=== PATIENT | male | born 1940 | race Caucasian/White ===

== ENCOUNTER 2017-03-29 00:30 | Inpatient (IN) | payer OTHER ==
[2017-03-29] MEDS ORDERED: LIDOCAINE 2% JELLY 20 ML (UROJECT) ONE (00:59)
[2017-03-29] MEDS ORDERED: LIDOCAINE 2% JELLY 20 ML (UROJECT) UR ONE (01:05)
--- NOTE | 2017-03-29 04:12 | EDPHY ---
H & P Stated Complaint: bleeding from prostate/dysuria Time Seen by Provider: 03/29/17 00:45 HPI/ROS: Chief Complaint: Hematuria HPI: 76-year-old male with a history of benign prostate disease presenting with hematuria and inability to urinate. Patient has had similar episodes in the past, most recently 2 years ago. At that time he had an irrigation catheter placed and followed up with Urology. He is currently under the care of Dr. Arango, urology. There has been some discussion about a prostatectomy which the patient has been deferring. He had tried to self cath at home but only produced blood clots. No fevers or chills. No nausea or vomiting. Some abdominal pain associated with his inability to urinate. ROS: 10 point Review of Systems is negative except as noted in the HPI. PMH: BPH Social History: No smoking, no alcohol, no recreational drug use Family History: non-contributory Physical Exam: Gen: Awake, Alert, No Distress HEENT: Nose: no rhinorrhea Eyes: PERRLA, EOMI Mouth: Moist mucosa Neck: Supple, no JVD Chest: nontender, lungs clear to auscultation Heart: S1, S2 normal, no murmur Abd: Soft, distended bladder palpable, moderate tenderness Back: no CVA tenderness, no midline tenderness Ext: no edema, non-tender Skin: no rash Neuro: CN II-XII intact, Sensation grossly intact, Strength 5/5 in bilateral upper and lower extremities - Personal History Current Tetanus/Diphtheria Vaccine: Yes - Medical/Surgical History Hx Asthma: No Hx Chronic Respiratory Disease: No Hx Diabetes: No Hx Cardiac Disease: No Hx Renal Disease: No Hx Cirrhosis: No Hx Alcoholism: No Hx HIV/AIDS: No Hx Splenectomy or Spleen Trauma: No Other PMH: PMHx/PSHx: BPH s/p Green laser surgery, bladder stones - Social History Smoking Status: Never smoked Constitutional: Initial Vital Signs Temperature (C) 37 C 03/29/17 00:33 Heart Rate 115 H 03/29/17 00:33 Respiratory Rate 24 H 03/29/17 00:33 Blood Pressure 106/67 03/29/17 00:33 O2 Sat (%) 96 03/29/17 00:33 O2 Delivery Mode Room Air Allergies/Adverse Reactions: No Known Allergies Allergy (Verified 03/11/15 12:31) Home Medications: Medication Instructions Recorded NK [No Known Home Meds] 03/29/17 Medical Decision Making ED Course/Re-evaluation: 76-year-old male with urinary retention and hematuria. It UA catheter is been placed with production of a large amount of clots and gross hematuria. He was irrigated with several L of fluid. Is continuing to produce clots at 1 point became obstructed once again requiring clot evacuation. I have discussed with Dr. Casanova, urology. He is requesting that the patient be admitted to the hospitalist service for continued bladder irrigation as he is likely to reobstruct and rebleed. Patient has not had any symptoms of infection. Will send a CBC and chemistry now to compared to baseline. I have discussed with Dr. sammie finley, hospitalist. She will admit to her service for further care. She is requesting the patient go to [address] [place] [address] for continuous bladder irrigation. - Data Points Medications Given: Discontinued Medications Lidocaine (Uroject Lidocaine 2% Jelly) 20 ml UR EDNOW ONE Stop: 03/29/17 01:06 Last Admin: 03/29/17 01:05 Dose: 20 ml Departure - Departure Disposition: [facility] Inpatient Acute Clinical Impression: Hematuria, Urinary retention Condition: Fair Referrals: NONE *PRIMARY CARE P,. [Primary Care Provider] - As per Instructions
[2017-03-29] MEDS ORDERED: ONDANSETRON 4 MG/2 ML VIAL IVP PRN (04:13)
[2017-03-29] MEDS ORDERED: ACETAMINOPHEN 325 MG TAB PO PRN (04:13)
[2017-03-29] MEDS ORDERED: ONDANSETRON DISINTEGRATING 4 MG TAB PO PRN (04:13)
[2017-03-29 05:05] LABS: ANION GAP 8 mEq/L (8-16); CARBON DIOXIDE 20 mEq/l (22-31); CHLORIDE 106 mEq/L (97-110); CREATININE 0.7 mg/dL (0.7-1.3); GLOMERULAR FILTRATION RATE > 60; GLUCOSE 141 mg/dL (70-100); POTASSIUM 4.4 mEq/L (3.5-5.2); SODIUM 134 mEq/L (134-144)
[2017-03-29 05:13] LABS: % IMMATURE GRANULYOCYTES 0.4 % (0.0-1.1); ABSOLUTE IMMATURE GRANULOCYTES 0.04 10^3/uL (0.00-0.10); ADD DIFF? NO; ADD MORPH? NO; ADD SCAN? NO; ATYPICAL LYMPHOCYTE FLAG 0 (0-99); FRAGMENT RBC FLAG 20 (0-99); HEMATOCRIT 28.8 % (40.0-51.0); LEFT SHIFT FLG 10 (0-99); LIPEMIA HEMOLYSIS FLAG 80 (0-99); MEAN CELL HEMOGLOBIN 25.4 pg (27.9-34.1); MEAN CELL HEMOGLOBIN CONCENTR. 31.3 g/dL (32.4-36.7); MEAN CELL VOLUME 81.1 fL (81.5-99.8); MEAN PLATELET VOLUME 12.8 fL (8.7-11.7); PLATELET CLUMPS FLAG 0 (0-99); PLATELET COUNT 166 10^3/uL (150-400); RED BLOOD CELL COUNT 3.55 10^6/uL (4.40-6.38); RED CELL DISTRIBUTION WIDTH 15.6 % (11.5-15.2)
--- NOTE | 2017-03-29 05:22 | GHP ---
[f rep st] HISTORY AND PHYSICAL DATE OF ADMISSION: 03/29/2017 CHIEF COMPLAINT: Abdominal discomfort and hematuria. HISTORY OF PRESENT ILLNESS: A 76-year-old male with limited past medical history to known BPH and previous episode of gross hematuria requiring irrigation. The patient was last seen in the emergency department in 2014 with similar complaints as he has been symptom free since that time without any surgical intervention on his prostate. The patient late this evening developed significant clot burden in his urination, believed he was passing the clots successfully, and then had complete inability to pass clots and/or urine. Developed abdominal distention and associated abdominal pain. Therefore, presented to the emergency department. He denies any significant preceding dysuria. Denies any subjective fevers or chills. Denies nausea or vomiting. Does report that as he was passing painful urine with clots, he would concomitantly need to pass stool. Otherwise denied diarrhea or changes in his bowel habits. Denies any chest pain, palpitations, shortness of breath, vision changes, dysphagia, myalgias, arthralgias, or any new rashes. The patient is currently much more comfortable since catheter has been placed and irrigation has been initiated. PAST MEDICAL HISTORY: 1. BPH. 2. History of gross hematuria. 3. History of prostatitis. 4. History of bladder calculus. SOCIAL HISTORY: Negative for tobacco, alcohol, or illicit drugs. FAMILY HISTORY: Negative for any BPH or prostatic cancers. Sisters from ALS. Brother from lung cancer. ADVANCED DIRECTIVES: Patient is full cor, full tube. His would be his medical decision maker. REVIEW OF SYSTEMS: A 10-point review of systems is negative with the exception of that reported in the HPI. PHYSICAL EXAMINATION: VITAL SIGNS: Blood pressure 106/67, heart rate 115 at presentation, respiratory rate 24, 96% on room air, 37.0. GENERAL: This is a pleasant healthy-appearing elderly male in no acute distress. HEENT: Notable for moist mucous membranes. Eye exam is negative for any icterus. CARDIAC: Patient is regular rate and rhythm. PULMONARY: Clear to auscultation bilaterally. GASTROINTESTINAL: The abdomen is mildly distended and mildly tender to palpation throughout. No rebound or guarding is appreciated. UROLOGIC: A Sanchez catheter for irrigation is in place. Urine is clearing. MUSCULOSKELETAL: Negative for any lower extremity edema. SKIN: Negative for any rashes. NEUROLOGIC: He is alert and oriented x3. PSYCHIATRIC: He is pleasant and cooperative on interview and examination. DATA: Laboratory review, creatinine last check is 0.8 in 2014. At that time, the patient had normocytic anemia with a hemoglobin of 11.8. Telemetry, which I personally reviewed and interpreted, showed sinus rhythm. ASSESSMENT AND PLAN: This is a 76-year-old male, presenting with gross hematuria and abdominal discomfort. 1. Gross hematuria. Suspect this is recurrent episode related to the patient' s benign prostatic hyperplasia and previous history. The 3-way catheter is in place and irrigation has been initiated. Urology has been consulted from the emergency department. Will continue irrigation. Would recommend that we send urinalysis, as well as basic labs including CBC, and BMP to evaluate the patient 's renal function, as well as white count. Will not start any empiric antibiotics at this time, and follow the patient's clinical course on bladder irrigation. Will treat with pain medications as needed for abdominal discomfort. 2. Benign prostatic hyperplasia. Well known to this patient with chronically elevated PSA. Patient is followed chronically by Dr. Arango. Can reinitiate discussions on long-term treatment of his benign prostatic hyperplasia after acute treatment of his gross hematuria. 3. Acute urinary obstruction 2/2 BPH - Sanchez placed in ED - Urology to consult for recs related to acute presentation 4. History of normocytic anemia. Will recheck the patient's CBC this morning. 5. Prophylaxis. Will hold on Lovenox secondary to the hematuria. Place sequential compression devices. Diet regular. DISPOSITION: I expect greater than 2 midnights as the patient is requiring bladder irrigation. Will need consultation with Urology and clearer therapeutic plan in place prior to disposition. I have discussed the case with the emergency room physician and triage. The patient to [address] [place] [address] for continuous bladder irrigation and urologic consultation. /[id number]/MODL MTDD
--- NOTE | 2017-03-29 12:40 | HOSPPROG ---
Hospitalist Progress Note Assessment/Plan: Patient is a 76-year-old male with history of BPH and history of gross hematuria require irrigation. Prior to his admission he developed significant clots while trying to urinate. He presented the emergency room with abdominal discomfort and hematuria. He was admitted earlier this morning by Dr Land. I came by to check in and follow up with him. * gross hematuria On continuous bladder irrigation per RN, when fluid is slowed down, patient develops clots spoke w Eliane Eubanks and Dr Arango will be by today * BPH with a chronically elevated PSA To follow up with Dr. Arango in the outpatient setting * normocytic anemia will follow * urinary obstruction secondary to BPH *Plan: will await input from urology Subjective: Todd has no complaints. Objective: Vital Signs Temp Pulse Resp BP Pulse Ox 36.8 C 67 16 126/80 H 98 03/29/17 11:42 03/29/17 11:42 03/29/17 11:42 03/29/17 11:42 03/29/17 11:42 Laboratory Results 03/29/17 04:40 03/29/17 04:40 03/28/17 03/29/17 03/30/17 05:59 05:59 05:59 Intake Total 43399 Output Total 45952 150 Balance -3450 -150 - Physical Exam Constitutional: no apparent distress, appears nourished, not in pain Eyes: PERRL Ears, Nose, Mouth, Throat: hearing normal Respiratory: no respiratory distress Genitourinary: cheatham in urethra (draining tea colored urine) Neurologic: AAOx3 Psychiatric: interacting appropriately, not anxious ICD10 Worksheet Patient Problems: Problems Problem Status Onset Hematuria Acute Urinary retention Acute
--- NOTE | 2017-03-29 15:04 | GCON ---
[f rep st] CONSULTATION HOSPITAL VISIT Urology has been asked to see the patient by the emergency room, Ranjan Richmond, and also the hospital ist, Juana Land, and also Carla Horton. By history, this is a gentleman who has had gross hematuria, and he says he has been bleeding for the past 4 or 5 days. He eventually developed urinary clot retention, unable to void and was seen in [facility] emergency room. It is noted this is a 76-year-old gentleman who has had a long-standing history of BPH and bladder stones, stones which were removed in the past. It was recommended he should have BP H treatment, and he has declined. At the present time, he was admitted because of gross clot urinary retention. He has had a catheter placed for irrigation of the bladder. PAST MEDICAL HISTORY: Significant for BPH, gross hematuria, history of prostatitis and bladder stone s. SOCIAL HISTORY: Nonsmoker, nondrinker. No illicit drugs. FAMILY HISTORY: Negative for prostate disorder. Sister from ALS. Brother from lung cance r. REVIEW OF SYSTEMS: Negative cardiac, respiratory, GI, endocrine, and musculoskeletal. PHYSICAL EXAM: VITAL SIGNS: Stable. GENERAL: He is alert and oriented x3. CHEST: Has normal res pirations. HEART: Regular rate and rhythm. ABDOMEN: Soft. : He does have a catheter in place, with irrigation going. LOWER EXTREMITIES: Normal, with no suggestion of peripheral edema, swelling , DVT, or clots. At the present time, he is being admitted for irrigation of the bladder. I did request an ultrasound of the kidneys that showed no hydronephrosis or masses. I had also asked for a pelvic ultrasound [facility] for some reason has been canceled, and so a complete ultrasound was not performed. The radiologis t interpreted the ultrasound of the bladder area as having BPH and the catheter. When I review it, i t appears he has some clot, approximately 30 mL of clot in the bladder on the ultrasound in the [facility]. I have irrigated his catheter, and it revealed no clots. Urine is relatively clear. The nurse says that if they slow the catheter irrigation down, that he gets more bloody and has bladder spasms. At the present time, plan is to continue a CBI, hopefully remove his catheter tomorrow morning, and if he voids spontaneously and goes home, and after recovery from his anemia related to this event, angeles angulogo a TUR of the prostate. We would further evaluate him since it has been a while since he has cody juan evaluated. If he cannot void or has residual clots, then he may need to undergo general anesthes ia for evacuation of clots, but once again, I irrigated his bladder. It appears that he had no large clots, and adequate ultrasound of the bladder/pelvis was canceled unknowingly to me. His hematocrit is noted to be 28%. We will check it in the morning, and B and O suppositories will be added to his medication list. We will follow up with him tomorrow. /[id number]/MODL
--- NOTE | 2017-03-29 17:04 | ASMTCMCOM ---
CM Note CM Note Notes: Patient seen by Dr. lewis of urology..He will wait to see if patient continues to have needs or whether he will be abl eto discharge home independent. Case management will ofllow. Date Signed: 03/29/2017 05:03 PM Electronically Signed By:BETZAIDA Moore
[2017-03-29] MEDS: OPIUM/BELLADONNA ALKALO SUPP PR PRN (17:29)
[2017-03-30 05:26] LABS: % IMMATURE GRANULYOCYTES 0.3 % (0.0-1.1); ABSOLUTE IMMATURE GRANULOCYTES 0.03 10^3/uL (0.00-0.10); ADD DIFF? NO; ADD MORPH? NO; ADD SCAN? NO; ATYPICAL LYMPHOCYTE FLAG 0 (0-99); FRAGMENT RBC FLAG 20 (0-99); HEMATOCRIT 28.3 % (40.0-51.0); HEMOGLOBIN 8.8 g/dL (13.7-17.5); LEFT SHIFT FLG 10 (0-99); LIPEMIA HEMOLYSIS FLAG 80 (0-99); MEAN CELL HEMOGLOBIN 25.7 pg (27.9-34.1); MEAN CELL HEMOGLOBIN CONCENTR. 31.1 g/dL (32.4-36.7); MEAN CELL VOLUME 82.7 fL (81.5-99.8); MEAN PLATELET VOLUME 12.5 fL (8.7-11.7); PLATELET CLUMPS FLAG 30 (0-99); PLATELET COUNT 170 10^3/uL (150-400); RED BLOOD CELL COUNT 3.42 10^6/uL (4.40-6.38); RED CELL DISTRIBUTION WIDTH 15.9 % (11.5-15.2)
[2017-03-30 05:58] LABS: ANION GAP 12 mEq/L (8-16); CALCIUM 9.1 mg/dL (8.5-10.4); CARBON DIOXIDE 21 mEq/l (22-31); CHLORIDE 106 mEq/L (97-110); CREATININE 0.7 mg/dL (0.7-1.3); GLOMERULAR FILTRATION RATE > 60; GLUCOSE 147 mg/dL (70-100); POTASSIUM 4.7 mEq/L (3.5-5.2); SODIUM 139 mEq/L (134-144)
--- NOTE | 2017-03-30 12:25 | SOAPPROG ---
SOAP Progress Note Assessment/Plan: Assessment: Clot retention Plan: RN pulled catheter this AM. Patient has voided and has 75ml in bladder. He may be discharged from urology perspective when ok with hospitalist. He is to followup with us as outpatient to discuss TURP. 03/30/17 12:24 Subjective: Bladder spasms this AM. Objective: Vital Signs Temp Pulse Resp BP Pulse Ox 37.0 C 83 16 139/76 H 97 03/30/17 12:02 03/30/17 12:02 03/30/17 12:02 03/30/17 12:02 03/30/17 12:02 Laboratory Results 03/30/17 05:02 03/30/17 05:02 03/29/17 03/30/17 03/31/17 05:59 05:59 05:59 Intake Total 56332 1000 625 Output Total 34690 49447 100 [facility] -[phone] 525 Physical Exam - Physical Exam General Appearance: alert, mild distress Neck: full range of motion Male Genitalia: other (dark pink urine in bag) Skin: normal color, warm/dry Neuro/Psych: no motor/sensory deficits, alert ICD10 Worksheet Patient Problems: Problems Problem Status Onset Hematuria Acute Urinary retention Acute
--- NOTE | 2017-03-30 12:40 | HOSPPROG ---
Hospitalist Progress Note Assessment/Plan: Patient is a 76-year-old male with history of BPH and history of gross hematuria require irrigation. Prior to his admission he developed significant clots while trying to urinate. He presented the emergency room with abdominal discomfort and hematuria. * gross hematuria continuous bladder irrigation was dc patient had 75 ml of bloody urine will likely need surgery to evacuate clot spoke with urology and they are aware * BPH with a chronically elevated PSA To follow up with Dr. Arango in the outpatient setting will need a TURP * normocytic anemia will follow had a decrease/will follow * urinary obstruction secondary to BPH will need a TURP *Plan: He will need another midnight stay/ voiding minimally and urine is bloody. Appreciate Dr Arango. Subjective: Todd is not having any abominal pain, but is concerned about ongoing hematuria. Objective: Vital Signs Temp Pulse Resp BP Pulse Ox 37.0 C 83 16 139/76 H 97 03/30/17 12:02 03/30/17 12:02 03/30/17 12:02 03/30/17 12:02 03/30/17 12:02 Laboratory Results 03/30/17 05:02 03/30/17 05:02 03/29/17 03/30/17 03/31/17 05:59 05:59 05:59 Intake Total 73990 1000 625 Output Total 38008 34614 100 [facility] -[phone] -[phone] - Physical Exam Constitutional: appears nourished, not in pain Eyes: PERRL Ears, Nose, Mouth, Throat: ears appear normal Cardiovascular: regular rate and rhythym Respiratory: no respiratory distress Gastrointestinal: normoactive bowel sounds Skin: warm, No normal color (pale) Musculoskeletal: full muscle strength Neurologic: AAOx3 Psychiatric: interacting appropriately ICD10 Worksheet Patient Problems: Problems Problem Status Onset Hematuria Acute Urinary retention Acute
[2017-03-30] MEDS: OPIUM/BELLADONNA ALKALO SUPP PR PRN (14:33)
[2017-03-30] MEDS ORDERED: LIDOCAINE 2% JELLY 20 ML (UROJECT) UR ONE (17:00)
[2017-03-30] MEDS ORDERED: TAMSULOSIN HCL 0.4 MG CAP PO ONE (20:15)
[2017-03-30] MEDS: SOLIFENACIN SUCCINATE 5 MG TAB PO SCH (20:28)
[2017-03-30] MEDS ORDERED: NS 1,000 ML IV SCH (23:00)
[2017-03-31 05:25] LABS: HEMATOCRIT 25.9 % (40.0-51.0); HEMOGLOBIN 7.9 g/dL (13.7-17.5)
[2017-03-31 05:36] LABS: INR 1.14 (0.83-1.16); PROTIME(PATIENT) 14.5 SEC (12.0-15.0)
[2017-03-31 05:37] LABS: APTT 33.7 SEC (23.0-38.0)
[2017-03-31 05:46] LABS: ANION GAP 11 mEq/L (8-16); CALCIUM 8.4 mg/dL (8.5-10.4); CARBON DIOXIDE 20 mEq/l (22-31); CHLORIDE 108 mEq/L (97-110); CREATININE 0.7 mg/dL (0.7-1.3); GLOMERULAR FILTRATION RATE > 60; GLUCOSE 137 mg/dL (70-100); POTASSIUM 4.1 mEq/L (3.5-5.2); SODIUM 139 mEq/L (134-144)
--- NOTE | 2017-03-31 07:38 | PDHPUP ---
History & Physical Update H&P update statement: This history and physical update is based on an assessment of the patient which was completed after admission or registration (within 24 hours), but prior to the surgery/procedure. H&P update: H&P reviewed & patient examined, no change in patient's condition since H&P completed
[2017-03-31] MEDS ORDERED: ceFAZolin 2 GM/DEXTROSE 100 ML IV ONE (07:39)
[2017-03-31] MEDS ORDERED: LIDOCAINE 2% JELLY 20 ML (UROJECT) ONE (08:20)
[2017-03-31] MEDS ORDERED: IOPAMIDOL (ISOVUE-M 300) 15 ML VIAL ONE (08:20)
[2017-03-31] MEDS ORDERED: fentaNYL 100 MCG/2 ML INJ ONE ×3 (09:26→11:18)
[2017-03-31] MEDS ORDERED: PROPOFOL 200 MG/20 ML VIAL ONE (09:26)
[2017-03-31] MEDS ORDERED: LR 1,000 ML IV ONE (09:31)
--- NOTE | 2017-03-31 09:38 | PDANEPAE ---
ANE History of Present Illness urinary blood clots, presents for cysto ANE Past Medical History - Cardiovascular History Hx Hypertension: No Hx Arrhythmias: No Hx Chest Pain: No Hx Coronary Artery / Peripheral Vascular Disease: No Hx CHF / Valvular Disease: No Hx Palpitations: No - Pulmonary History Hx COPD: No Hx Asthma/Reactive Airway Disease: No Hx Recent Upper Respiratory Infection: No Hx Oxygen in Use at Home: No Hx Sleep Apnea: No Sleep Apnea Screening Result - Last Documented: Negative - Endocrine History Hx Diabetes: No Hypothyroid: No Hyperthyroid: No Obesity: no - Renal History Renal History Comment: BPH - Chronic Pain History Chronic Pain: No ANE Review of Systems Review of systems is: negative Review of Systems: - Exercise capacity Exercise capacity: >=4 METS ANE Patient History - Allergies Allergies/Adverse Reactions: No Known Allergies Allergy (Verified 03/11/15 12:31) - Home Medications Home medications: home medication list seen and reviewed Home Medications: NK [No Known Home Meds] 03/29/17 [Last Taken Unknown] - NPO status NPO Since - Liquids (Date): 03/31/17 NPO Since - Liquids (Time): 00:01 NPO Since - Solids (Date): 03/31/17 NPO Since - Solids (Time): 00:01 - Anes Hx Anes Hx: no prior problems - Smoking Hx Smoking Status: Never smoked - Family Anes Hx Family Anes Hx: none ANE Labs/Vital Signs - Labs Result Diagrams: 03/31/17 05:16 03/31/17 05:16 - Vital Signs Blood Pressure: 140/71 Heart Rate: 68 Respiratory Rate: 16 O2 Sat (%): 97 Height: 175.26 cm Weight: 81.647 kg ANE Physical Exam - Airway Neck exam: FROM Mallampati Score: Class 1 Mouth exam: normal dental/mouth exam - Pulmonary Pulmonary: no respiratory distress - Cardiovascular Cardiovascular: regular rate and rhythym - ASA Status ASA Status: II ANE Anesthesia Plan Anesthesia Plan: GA w LMA
[2017-03-31] MEDS ORDERED: ONDANSETRON 4 MG/2 ML VIAL ONE (10:02)
[2017-03-31] MEDS ORDERED: DEXAMETHASONE 4 MG/ML VIAL ONE (10:02)
[2017-03-31] MEDS ORDERED: PROMETHAZINE HCL 25 MG/ML INJ IVP PRN (10:10)
[2017-03-31] MEDS ORDERED: ACETAMINOPHEN 500 MG TAB PO PRN (10:10)
[2017-03-31] MEDS ORDERED: ONDANSETRON 4 MG/2 ML VIAL IVP PRN (10:10)
[2017-03-31] MEDS ORDERED: LR 500 ML IV PRN (10:10)
[2017-03-31] MEDS ORDERED: NALOXONE HCL 0.4 MG/ML INJ IVP PRN (10:10)
[2017-03-31] MEDS ORDERED: OXYCODONE/APAP 5/325 TAB PO PRN (10:10)
[2017-03-31] MEDS ORDERED: ALBUTEROL 3 ML DEYVIAL IH PRN (10:10)
--- NOTE | 2017-03-31 10:50 | POSTANESTH ---
Post Anesthetic Evaluation Cardiovascular Status: Normal, Stable Respiratory Status: Normal, Stable Level of Consciousness/Mental Status: Can Participate in Eval Pain Control: Adequate, Prn Tx Ordered Nausea/Vomiting Control: Adequate, Prn Tx Ordered Complications Possibly Related to Anesthesia: None Noted
[2017-03-31] MEDS: fentaNYL 100 MCG/2 ML INJ IVP PRN ×3 (10:54→11:20)
--- NOTE | 2017-03-31 10:55 | POSTOPPROG ---
Post Op Note Date of Operation: 03/31/17 Surgeon: Nestor Arango Anesthesia: LMA Pre-op Diagnosis: hemorrhagic prostatitis, bladder retention dut to clots Post-op Diagnosis: same Indication: ` Procedure: evacuate clots, cauterize hemorrhagic prostatitis Inf/Abcess present in the surg proc area at time of surgery?: No EBL: Minimal Drains: Other (cheatham) Specimen(s): dictated
--- NOTE | 2017-03-31 10:59 | HOSPPROG ---
Hospitalist Progress Note Assessment/Plan: DIAGNOSES: -gross hematuria with urinary retention The patient has been to the OR today for evacuation of clots with Dr. Arango PLANS: -continue bladder irrigation and follow closely vital signs blood counts and his degree of bleeding -recheck hemoglobin morning SUBJECTIVE: Has had bladder evacuated of clot in the OR today with Dr. Arango Feels well at this time other than occasional twinge of discomfort in the penis from his catheter OBJECTIVE Vitals reviewed: All stable without fever thus far Exam: alert oriented skin warm dry color ok resps not labored lungs clear BSs heart regular abd soft nondistended nontender, bowel sounds present limbs warm, no edema Irrigation Sanchez catheter in place with ongoing foot are irrigation fluid, very minimal pink tinge to the fluid at this time iv site ok Laboratory data: Hemoglobin down to 7.9 this morning consistent with ongoing bleeding Objective: Vital Signs Temp Pulse Resp BP Pulse Ox 36.6 C 68 16 140/71 H 97 03/31/17 09:05 03/31/17 09:38 03/31/17 09:38 03/31/17 09:38 03/31/17 09:38 Laboratory Results 03/31/17 05:16 03/31/17 05:16 03/30/17 03/31/17 04/01/17 06:59 06:59 06:59 Intake Total 1000 1675 388 Output Total 55204 1790 175 Balance -66605 -115 213 PT 14.5 SEC (12.0-15.0) 03/31/17 05:16 INR 1.14 (0.83-1.16) 03/31/17 05:16 ICD10 Worksheet Patient Problems: Problems Problem Status Onset Hematuria Acute Urinary retention Acute
--- NOTE | 2017-03-31 11:29 | ASMTCMCOM ---
CM Note CM Note Notes: Anticipate pt will have no DC needs. A rep from [employer] called today and asked that pt contact their case mgmt dept at [phone] [id number]. Info given to pt. C/M available if needed. Date Signed: 03/31/2017 11:28 AM Electronically Signed By:[place] Jose LCSW
[2017-03-31 12:20] LABS: HEMATOCRIT 25.3 % (40.0-51.0); HEMOGLOBIN 7.7 g/dL (13.7-17.5)
--- NOTE | 2017-03-31 12:24 | GOP ---
[f rep st] OPERATIVE REPORT DATE OF OPERATION: 03/31/2017 SURGEON: Nestor Arango MD PREOPERATIVE DIAGNOSIS: Hemorrhagic prostatitis with urinary clot retention. POSTOPERATIVE DIAGNOSIS: Hemorrhagic prostatitis with urinary clot retention. PROCEDURE PERFORMED: Transurethral evacuation of bladder clots and then fulguration of prostatic ble eding. FINDINGS: DESCRIPTION OF PROCEDURE: The gentleman underwent general anesthesia, was prepped and draped in the normal sterile fashion in the dorsal lithotomy position. Urethra was normal. Bladder was full of cl ot that was evacuated and some of the clot was actually organized and almost solidified like it had b een there for more than 3 or 4 weeks. After removal of clot, I inspected the bladder and there was n o tumors or stones, and at that point, I identified the hemorrhagic part of the prostatitis that was bleeding. He had actually a bleeding site on the anterior part that appeared to be somewhat at the p roximal margin of the prostatic urethra, and when I brought the scope out to that site, I did not hav e good visualization, so after fulgurating the varied bleeding sites and inspecting the prostatic fos sa he does have significant BPH with obstruction. With him being anemic preop and having the site th at I felt I could not really visualize adequately for a good anatomic resection, I elected not to do the TURP, and then I will bring him back at a later time if the patient needs to have that done. The n a Urojet placed in the urethra. A 3-way 24 catheter was passed over a guide into the bl adder. Balloon was inflated to 45 cc of fluid and mild traction placed and he irrigated clear. He w ill be admitted for postoperative care and plan on probably removing the catheter tomorrow morning an d then discharge after that. If he has resumption of bleeding, we will have to address that at that point. He tolerated the procedure well and no specimens from the prostate obtained, but there were t he bladder clots that will be sent. /[id number]/MODL
[2017-03-31] MEDS: SOLIFENACIN SUCCINATE 5 MG TAB PO SCH (14:31)
[2017-03-31] MEDS: TAMSULOSIN HCL 0.4 MG CAP PO SCH (14:31)
[2017-03-31 20:18] VITALS: RESP 16
[2017-04-01 05:27] LABS: HEMATOCRIT 24.3 % (40.0-51.0); HEMOGLOBIN 7.6 g/dL (13.7-17.5); MEAN CELL HEMOGLOBIN CONCENTR. 31.3 g/dL (32.4-36.7); MEAN CELL VOLUME 83.2 fL (81.5-99.8); RED BLOOD CELL COUNT 2.92 10^6/uL (4.40-6.38); RED CELL DISTRIBUTION WIDTH 15.9 % (11.5-15.2)
[2017-04-01] MEDS: SOLIFENACIN SUCCINATE 5 MG TAB PO SCH (09:20)
[2017-04-01] MEDS: TAMSULOSIN HCL 0.4 MG CAP PO SCH (09:21)
--- NOTE | 2017-04-01 15:18 | SOAPPROG ---
SOAP Progress Note Assessment/Plan: Assessment: Clot retention Plan: Catheter pulled at 12.30. Patient has voided small streams, 50ml. He is nervous to go home. I discussed case with Dr Cid who will discharge patient if he voids sufficiently over next hour or two. If not, should have PVR. If level >350ml consider replacement of cheatham and restarting CBI although I'd like to avoid this if possible. Otherwise followup with Dr Arango in 1 week with Hct/Hgb and discussion of TURP 04/01/17 15:16 Subjective: voiding. no bladder pain. Objective: Vital Signs Temp Pulse Resp BP Pulse Ox 36.7 C 73 16 139/74 H 97 04/01/17 11:27 04/01/17 11:27 04/01/17 11:27 04/01/17 11:27 04/01/17 11:27 Laboratory Results 04/01/17 04:56 03/31/17 05:16 03/31/17 04/01/17 04/02/17 05:59 05:59 05:59 Intake Total 1675 2298 Output Total 1790 7476 700 Balance -115 -5157 -700 PT 14.5 SEC (12.0-15.0) 03/31/17 05:16 INR 1.14 (0.83-1.16) 03/31/17 05:16 Physical Exam - Physical Exam General Appearance: alert, no apparent distress Respiratory: lungs clear, normal breath sounds Cardiac/Chest: regular rate, rhythm Abdomen: normal bowel sounds Male Genitalia: other (minimal red urine without clots in container) Skin: other (somewhat pale) ICD10 Worksheet Patient Problems: Problems Problem Status Onset Hematuria Acute Urinary retention Acute
[2017-04-01 15:41] VITALS: BP 125/71; PULSE 70; TEMP 98.3; O2SAT 91
--- NOTE | 2017-04-01 18:41 | PDDCSUM ---
Discharge Summary Discharge Summary: DISCHARGE DIAGNOSES: -gross hematuria with urinary retention -BPH CONSULTATION: Dr Arango COMPLICATIONS: NONE PROCEDURES: irrigation cheatham catheter surgical evacuation of bladder clots HOSPITAL COURSE: The patient presented with acute urinary retention severely painful in the setting of gross hematuria with clots. Initial tx with bladder irrigation appeared successful and eventually the catheter was removed. However the following night he again bled and required replacement of the irrigation cath. He then went to the OR with Dr Arango for clot evacuation. Subsequently he has been voiding well and a bladder scan this evening showed 112 ml, which is actually low for him. He is stable for DC to home. MED CHANGES: addition of flomax and vesicare FOLLOW UP: with Dr Arango 2 weeks or sooner prn
== END 2017-04-01 17:48 | disposition home or self-care (01) | DRG 667 ==
LOC: F1N 04:57
PROVIDERS: ADMIT Hospitalist; ATTEND Internal Medicine
PROC: 3E1K78Z Irrigation of Genitourinary Tract using Irrigating Substance, Via Natural or Artificial Opening (ICD-10-PCS; 2017-03-29)
PROC: 0TCB8ZZ Extirpation of Matter from Bladder, Via Natural or Artificial Opening Endoscopic (ICD-10-PCS; principal; 2017-03-31 10:15)
PROC: 0V508ZZ Destruction of Prostate, Via Natural or Artificial Opening Endoscopic (ICD-10-PCS; principal; 2017-03-31 10:15)
DX: N32.89 Other specified disorders of bladder (principal); N40.1 Benign prostatic hyperplasia with lower urinary tract symptoms; N13.8 Other obstructive and reflux uropathy; N41.9 Inflammatory disease of prostate, unspecified; R31.0 Gross hematuria; D64.9 Anemia, unspecified; R97.20 Elevated prostate specific antigen [PSA]
CPT/HCPCS: J0690; J1100; J2405; J2704; J3010; Q9967

== ENCOUNTER 2017-04-11 10:58 | Emergency (ER) | payer OTHER ==
--- NOTE | 2017-04-11 11:24 | CPEKG ---
Heart Rate: 78 RR Interval: 769 P-R Interval: 152 QRSD Interval: 92 QT Interval: 388 QTC Interval: 442 P Harpster: 33 QRS Harpster: 4 T Wave Harpster: 39 EKG Severity - OTHERWISE NORMAL ECG - EKG Impression: SINUS ARRHYTHMIA, RATE 68-90 EKG Impression: VENTRICULAR PREMATURE COMPLEX Electronically Signed By: Brittany Yates 11-Apr-2017 14:47:21
[2017-04-11] MEDS ORDERED: NS 1,000 ML IV ONE (11:32)
--- NOTE | 2017-04-11 11:35 | EDPHY ---
H & P Time Seen by Provider: 04/11/17 11:31 HPI/ROS: CHIEF COMPLAINT: Dizziness, light headedness HISTORY OF PRESENT ILLNESS: The patient is a 76 y/o male complaining of dizziness and light headedness this morning. He was admitted for gross hematuria and had surgical removal of the blood clots on 04/01/17, 10 days ago. His hematocrit was 24 on discharge 04/01. On night, 4 days ago, he had diarrhea and felt very exhausted. He did not see any blood in his diarrhea. Today he felt very tired and dizzy, so he collapsed on to the sofa. He is feeling back to normal now. He did eat breakfast today. He was recently placed on Flomax, but denies taking it frequently. Denies loss of consciousness, hitting his head, head or neck pain, shortness of breath, chest pain or other pertinent symptoms REVIEW OF SYSTEMS: Aside from elements discussed in the HPI, a comprehensive 10-point review of systems was reviewed and is negative. Prior medical records reviewed including discharge summary on 04/01/17. Past Medical/Surgical History: BPH s/p Green laser surgery Social History: , professor at , lives in [place] Smoking Status: Never smoked Physical Exam: General Appearance: Alert, pleasant and talkative Eyes: Pupils equal and round, no conjunctival pallor or injection ENT, Mouth: Mucous membranes moist Neck: Normal inspection Respiratory: Lungs are clear to auscultation Cardiovascular: Regular rate and rhythm Gastrointestinal: Abdomen is soft and non- tender Neurological: Alert, oriented x3, cranial nerves II through XII intact, motor 5 /5, sensory intact to light touch Skin: Warm and dry, no rash Extremities: Nontender, no pedal edema Psychiatric: Mood and affect normal Constitutional: Initial Vital Signs Temperature (C) 36.6 C 04/11/17 11:08 Heart Rate 95 04/11/17 11:08 Respiratory Rate 16 04/11/17 11:08 Blood Pressure 126/78 H 04/11/17 11:08 O2 Sat (%) 100 04/11/17 11:08 O2 Delivery Mode Room Air Allergies/Adverse Reactions: No Known Allergies Allergy (Verified 03/11/15 12:31) Home Medications: Medication Instructions Recorded Solifenacin Succinate [Vesicare 5 5 mg PO DAILY #30 tab 09/29/17 MG (*)] Tamsulosin HCl [Flomax 0.4 MG (*)] 0.4 mg PO DAILY #30 cap 04/01/17 Medical Decision Making - Diagnostics EKG Interpretation: EKG interpreted by me reveals sinus arrhythmia, rate 78, ST or T segment changes. Imaging: I viewed and interpreted images myself ED Course/Re-evaluation: The patient is a 76 y/o male presenting with a syncopal episode this morning. His physical exam is normal. 1L IV NS infusing. 1123: EKG interpreted by me reveals normal sinus arrhythmia with a rate of 78, normal axis, normal intervals, ST and T segments normal, ventricular premature complex. Interpretation: normal EKG 1246: Reassessed patient, he is feeling much better. I discussed laboratory and EKG findings. He will need to follow up with this primary care provide tomorrow. Return precautions provided; patient is comfortable with this plan. Differential Diagnosis: Differential diagnosis includes though is not limited to cardiac dysrhythmia, CVA, TIA, GI bleed, sepsis, hypoglycemia. - Data Points Laboratory Results: Laboratory Results 04/11/17 11:28 04/11/17 11:28 04/11/17 04/11/17 04/11/17 11:28 11:28 11:25 WBC 7.58 10^3/uL 10^3/uL (3.80-9.50) RBC 3.69 10^6/uL L 10^6/uL (4.40-6.38) Hgb 9.1 g/dL L g/dL (13.7-17.5) Hct 30.7 % L % (40.0-51.0) MCV 83.2 fL fL (81.5-99.8) MCH 24.7 pg L pg (27.9-34.1) MCHC 29.6 g/dL L g/dL (32.4-36.7) RDW 17.1 % H % (11.5-15.2) Plt Count 293 10^3/uL 10^3/uL (150-400) MPV 11.6 fL fL (8.7-11.7) Neut % (Auto) 79.5 % H % (39.3-74.2) Lymph % (Auto) 10.4 % L % (15.0-45.0) [place] % (Auto) 8.3 % % (4.5-13.0) Eos % (Auto) 0.5 % L % (0.6-7.6) Baso % (Auto) 0.8 % % (0.3-1.7) Nucleat RBC Rel Count 0.0 % % (0.0-0.2) Absolute Neuts (auto) 6.02 10^3/uL 10^3/uL (1.70-6.50) Absolute Lymphs (auto) 0.79 10^3/uL L 10^3/uL (1.00-3.00) Absolute Monos (auto) 0.63 10^3/uL 10^3/uL (0.30-0.80) Absolute Eos (auto) 0.04 10^3/uL 10^3/uL (0.03-0.40) Absolute Basos (auto) 0.06 10^3/uL 10^3/uL (0.02-0.10) Absolute Nucleated RBC 0.00 10^3/uL 10^3/uL (0-0.01) Immature Gran % 0.5 % % (0.0-1.1) Immature Gran # 0.04 10^3/uL 10^3/uL (0.00-0.10) Sodium 139 mEq/L mEq/L (134-144) Potassium 4.0 mEq/L mEq/L (3.5-5.2) Chloride 106 mEq/L mEq/L (97-110) Carbon Dioxide 21 mEq/l L mEq/l (22-31) Anion Gap 12 mEq/L mEq/L (8-16) BUN 15 mg/dL mg/dL (7-23) Creatinine 0.8 mg/dL mg/dL (0.7-1.3) Estimated GFR > 60 Glucose 117 mg/dL H mg/dL (70-100) Calcium 9.6 mg/dL mg/dL (8.5-10.4) Troponin I < 0.012 ng/mL ng/mL (0.000-0.034) Medications Given: Discontinued Medications Sodium Chloride (Ns) 1,000 mls @ 0 mls/hr IV ONCE ONE; Wide Open PRN Reason: Protocol Stop: 04/11/17 11:33 Last Admin: 04/11/17 11:35 Dose: 1,000 mls Departure - Departure Disposition: Home, Routine, Self-Care Clinical Impression: Syncope Qualifiers: Syncope type: unspecified Qualified Code(s): R55 - Syncope and collapse Condition: Good Instructions: Syncope (ED), Near Syncope (ED), Lightheadedness (ED), Dizziness (ED) Additional Instructions: Follow up with a primary care provider tomorrow. Return to the ED if you experience shortness of breath, chest pain, fever or other worsening symptoms. Referrals: Darryl Benson DO [Doctor of Osteopathy] - As per Instructions Report Scribed for: Brittany Yates Report Scribed by: Shahla Muhammad Date of Report: 04/11/17 Time of Report: 11:34 Physician Review and Approval Statement: 04/11/17 11:34 Portions of this note were transcribed by a medical physiologist. I personally performed a history, physical exam, medical decision making, and confirmed accuracy of information the transcribed note.
[2017-04-11 11:42] LABS: % IMMATURE GRANULYOCYTES 0.5 % (0.0-1.1); ABSOLUTE IMMATURE GRANULOCYTES 0.04 10^3/uL (0.00-0.10); ADD DIFF? NO; ADD MORPH? NO; ADD SCAN? NO; ATYPICAL LYMPHOCYTE FLAG 0 (0-99); FRAGMENT RBC FLAG 20 (0-99); HEMATOCRIT 30.7 % (40.0-51.0); HEMOGLOBIN 9.1 g/dL (13.7-17.5); LEFT SHIFT FLG 0 (0-99); LIPEMIA HEMOLYSIS FLAG 70 (0-99); MEAN CELL HEMOGLOBIN 24.7 pg (27.9-34.1); MEAN CELL HEMOGLOBIN CONCENTR. 29.6 g/dL (32.4-36.7); MEAN CELL VOLUME 83.2 fL (81.5-99.8); MEAN PLATELET VOLUME 11.6 fL (8.7-11.7); PLATELET CLUMPS FLAG 0 (0-99); PLATELET COUNT 293 10^3/uL (150-400); RED BLOOD CELL COUNT 3.69 10^6/uL (4.40-6.38); RED CELL DISTRIBUTION WIDTH 17.1 % (11.5-15.2)
[2017-04-11 11:55] LABS: ANION GAP 12 mEq/L (8-16); CALCIUM 9.6 mg/dL (8.5-10.4); CARBON DIOXIDE 21 mEq/l (22-31); CHLORIDE 106 mEq/L (97-110); CREATININE 0.8 mg/dL (0.7-1.3); GLOMERULAR FILTRATION RATE > 60; GLUCOSE 117 mg/dL (70-100); SODIUM 139 mEq/L (134-144)
[2017-04-11 12:17] VITALS: PULSE 68
[2017-04-11 12:58] VITALS: BP 118/52; RESP 18; TEMP 98.4; O2SAT 96
== END 2017-04-11 12:54 | disposition home or self-care (01) ==
DX: R55 Syncope and collapse (principal); E86.9 Volume depletion, unspecified

== ENCOUNTER → 2018-10-26 | Outpatient (CLI) | payer OTHER ==
[~2018-10-26] MED LIST: IOPAMIDOL (ISOVUE-300) 100 ML BTL ONE
== END ==
LOC: FIMAGING 10:32
PROVIDERS: ATTEND Physician Assistant Medical
DX: N32.89 Other specified disorders of bladder (principal); R31.0 Gross hematuria; K57.30 Diverticulosis of large intestine without perforation or abscess without bleeding
CPT/HCPCS: Q9967

== ENCOUNTER 2018-10-27 11:22 | Observation (INO) | payer OTHER ==
--- NOTE | 2018-10-27 09:41 | PDHPUP ---
History & Physical Update H&P update statement: This history and physical update is based on an assessment of the patient which was completed after admission or registration (within 24 hours), but prior to the surgery/procedure. H&P update: H&P reviewed & patient examined, no change in patient's condition since H&P completed (dictation #[id number])
--- NOTE | 2018-10-27 09:53 | GHP ---
[f rep st] PREOP HISTORY AND PHYSICAL DATE OF ADMISSION: 10/27/2018 ADMISSION DIAGNOSIS: Urinary clot retention. HISTORY OF PRESENT ILLNESS: This is a 78-year-old gentleman who was seen in the office because of gr oss hematuria and previous assessment evaluation has noted that he has had significant BPH and that i s the probable source of his bleeding. He did have a CAT scan on 10/26/2018, that showed no signific ant renal pathology. He had a large bladder clot and I have elected to admit him as an outpatient to evacuate the clot and after that, then have further discussion at a later time for definitive therap y for his prostatic bleeding source. PAST MEDICAL HISTORY: His past medical history has been intermittent urinary retention and gross hem aturia. He has had an elevated PSA in the past and he had been treated with photo vaporization of th e prostate in the past for his BPH. PAST SURGICAL HISTORY: At the present time, his surgical history has been a colonoscopy and laser pr ostatectomy. MEDICATIONS ON ADMISSION: Proscar, ibuprofen. ALLERGIES: None. FAMILY HISTORY: Noncontributory. SOCIAL HISTORY: Former tobacco smoker and moderate alcohol consumption. REVIEW OF SYSTEMS: Negative cardiac, respiratory, GI, and endocrine. His blood pressure in the office was 150/84, heart rate 61, respirations 16, O2 saturation on room ai r 93%. BMI 26.58. PHYSICAL EXAM: VITAL SIGNS: Stable. CHEST: Clear. HEART: Regular rate and rhythm. ABDOMEN: No rmal. No organomegaly, rebound or guarding. EXTREMITIES: Lower extremities are normal. LABORATORY DATA: He did have a postvoid residual in the office of 110 mL, and had large blood with n o nitrites on the urine assessment. ASSESSMENT/PLAN: At the present time, he is admitted for cystoscopy and evacuation of clots. /[id number]/MODL
[2018-10-27] MEDS ORDERED: ceFAZolin 2 GM/DEXTROSE 100 ML IV ONE (11:41)
[2018-10-27] MEDS ORDERED: CEFAZOLIN 2 GM/DEXTROSE/100 ML BAG IV ONE (11:44)
[2018-10-27] MEDS ORDERED: LR 1,000 ML IV ONE (12:19)
[2018-10-27] MEDS ORDERED: LIDOCAINE 2% JELLY 20 ML (UROJECT) ONE (12:43)
--- NOTE | 2018-10-27 12:43 | PDANEPAE ---
ANE History of Present Illness Evacuation of bladder hematomas. ANE Past Medical History - Cardiovascular History Hx Hypertension: No Hx Arrhythmias: No Hx Chest Pain: No Hx Coronary Artery / Peripheral Vascular Disease: No Hx CHF / Valvular Disease: No Hx Palpitations: No Cardiovascular History Comment: Myocarditis 1970s - Pulmonary History Hx COPD: No Hx Asthma/Reactive Airway Disease: No Hx Recent Upper Respiratory Infection: No Hx Oxygen in Use at Home: No Hx Sleep Apnea: No Sleep Apnea Screening Result - Last Documented: Negative - Neurologic History Hx Cerebrovascular Accident: No Hx Seizures: No Hx Dementia: No - Endocrine History Hx Diabetes: No Hypothyroid: No Hyperthyroid: No Obesity: mild - Renal History Hx Renal Disorders: Yes Renal History Comment: BPH - Liver History Hx Hepatic Disorders: No - Neurological & Psychiatric Hx Hx Neurological and Psychiatric Disorders: No - Cancer History Hx Cancer: Yes Cancer History Comment: Skin CA s/p resections. - Congenital Disorder History Hx Congenital Disorders: No - GI History GERD: no Hx Gastrointestinal Disorders: No - Other Health History Other Health History: Prostatitis. Gross hematuria. Bladder calculus. Mild macular degeneration - Chronic Pain History Chronic Pain: No - Surgical History Prior Surgeries: Cystoscopy clot evacuation 03/31/17. Skin CA surgery 2018. Green light prostate surgery 2013 ANE Review of Systems Review of Systems: - Exercise capacity METS (RN): 4 METS ANE Patient History - Allergies Allergies/Adverse Reactions: No Known Allergies Allergy (Verified 10/27/18 11:51) - Home Medications Home Medications: Acetaminophen [Acetaminophen Extra Strength] 500 - 1,000 mg PO DAILY PRN [Last Taken 10/26/18] Cholecalciferol Vit D3 [Vitamin D3 2000 units tab (OTC)] 2,000 units PO DAILY [Last Taken 10/26/18] Cyanocobalamin (Vitamin B-12) [Vitamin B-12] 1,000 mcg PO 10/26/18 [Last Taken 10/26/18] Finasteride [Proscar 5 MG (*)] 5 mg PO DAILY 10/26/18 [Last Taken 10/26/18] Herbals/Supplements -Info Only 1 ea PO DAILY 10/26/18 [Last Taken 10/25/18] Naproxen Sodium [Aleve 220 MG (*)] 220 mg PO PRN 10/26/18 [Last Taken 10/22/18] - NPO status NPO Since - Liquids (Date): 10/27/18 NPO Since - Liquids (Time): 11:00 NPO Since - Solids (Date): 10/26/18 NPO Since - Solids (Time): 18:00 - Anes Hx Anes Hx: no prior problems - Smoking Hx Smoking Status: Former smoker Marijuana use: No - Alcohol Use Alcohol Use: Rarely - Family Anes Hx Family Anes Hx: none Family Hx Anesthesia Complications: None. ANE Labs/Vital Signs - Vital Signs Blood Pressure: 160/92 Heart Rate: 51 Respiratory Rate: 16 O2 Sat (%): 97 Height: 171.45 cm Weight: 78.471 kg ANE Physical Exam - Airway Neck exam: FROM Mallampati Score: Class 2 Mouth exam: normal dental/mouth exam - Pulmonary Pulmonary: clear to auscultation - Cardiovascular Cardiovascular: regular rate and rhythym - ASA Status ASA Status: II ANE Anesthesia Plan Anesthesia Plan: GA w LMA
[2018-10-27] MEDS ORDERED: fentaNYL 100 MCG/2 ML INJ ONE (12:59)
[2018-10-27] MEDS ORDERED: PROPOFOL 200 MG/20 ML VIAL ONE (12:59)
[2018-10-27] MEDS ORDERED: DEXAMETHASONE 4 MG/ML VIAL ONE (13:00)
[2018-10-27] MEDS ORDERED: ONDANSETRON 4 MG/2 ML VIAL ONE (13:52)
[2018-10-27] MEDS ORDERED: fentaNYL 100 MCG/2 ML INJ IVP PRN (13:55)
[2018-10-27] MEDS ORDERED: NALOXONE HCL 0.4 MG/ML INJ IVP PRN (13:55)
[2018-10-27] MEDS ORDERED: HYDROCODONE/APAP 5/325 TAB PO PRN ×2 (13:55→14:17)
[2018-10-27] MEDS ORDERED: oxyCODONE IR 5 MG TAB PO PRN (13:55)
[2018-10-27] MEDS ORDERED: OPIUM/BELLADONNA ALKALO SUPP PR PRN (14:17)
[2018-10-27] MEDS ORDERED: ONDANSETRON DISINTEGRATING 4 MG TAB PO PRN (14:19)
[2018-10-27] MEDS ORDERED: ZOLPIDEM TARTRATE 5 MG TAB PO PRN (14:19)
[2018-10-27] MEDS ORDERED: ACETAMINOPHEN 325 MG TAB PO PRN (14:19)
[2018-10-27] MEDS ORDERED: ONDANSETRON 4 MG/2 ML VIAL IVP PRN (14:19)
[2018-10-27] MEDS ORDERED: NAPROXEN SODIUM 220 MG TAB PO PRN (14:20)
--- NOTE | 2018-10-27 14:24 | POSTOPPROG ---
Post Op Note Date of Operation: 10/27/18 (dictated) Surgeon: Nestor Arango Anesthesiologist: Miseal Anesthesia: LMA Pre-op Diagnosis: heme prostatitis and clot retention Procedure: cautery bleeding , evac clots Inf/Abcess present in the surg proc area at time of surgery?: No EBL: 100-500 Complications: none Drains: Other (cheatham 115 ml balloon) Specimen(s): clot
[2018-10-27] MEDS ORDERED: D5W LR 1,000 ML IV SCH (14:30)
[2018-10-27] MEDS ORDERED: HYDROCODONE/APAP 5/325 TAB ONE (14:39)
--- NOTE | 2018-10-27 15:14 | GOP ---
[f rep st] OPERATIVE REPORT DATE OF OPERATION: 10/27/2018 SURGEON: Nestor Arango MD ANESTHESIA: General anesthesia. ANESTHESIOLOGIST: MD Misael PREOPERATIVE DIAGNOSIS: Hemorrhagic prostatitis with urinary clot retention. POSTOPERATIVE DIAGNOSIS: Hemorrhagic prostatitis with urinary clot retention. PROCEDURE PERFORMED: Evacuation of clots and fulguration of prostatic bleeding. FINDINGS: Hemorrhagic prostatitis with urinary clot retention. DESCRIPTION OF PROCEDURE: After appropriate time-out and being prepped and draped in normal sterile fashion, the urethra was normal. Prostate was obstructing with a lot of hemorrhagic prostatitis and collateral vessels identified. I evacuated out 250 mL of clot out of the bladder. Bladder visualized. There was no tumor, stones or foreign bodies in the bladder after evacuating the clot. At that point, he had multiple vascular areas in the prostate that I did bipolar button cauterization and tried to stop hemorrhage from the veru all the way to the intravesical compound of the prostate. At the end of the procedure, there was no significant bleeding site identified. I irrigated his bladder. Uro-Jet placed in the urethra, Sanchez catheter 22-Egyptian passed into the bladder. 105 mL balloon inflated, traction placed, irrigated clear. He will be admitted overnight for continuous bladder irrigation and then discontinue the Sanchez in the morning and if he voids, he can go home. Once again I have encouraged this gentleman in the future to have something to resolve his prostatic hypertrophy and intermittent chronic relapsing hemorrhagic prostatitis. Specimen was sent of the blood clot from the bladder. /[id number]/MODL MTDD
[2018-10-28 04:39] LABS: PLATELET COUNT 138 10^3/uL (150-400)
[2018-10-28] MEDS ORDERED: CHOLECALCIFEROL VIT D3 2,000 UNITS TAB/CAP PO SCH (09:00)
[2018-10-28] MEDS ORDERED: CYANO/VITAMIN B12 1000 MCG TAB PO SCH (09:00)
[2018-10-28] MEDS ORDERED: Herbals/Supplements -Info Only PO SCH (09:00)
[2018-10-28] MEDS ORDERED: FINASTERIDE 5 MG TAB PO SCH (09:00)
--- NOTE | 2018-10-28 10:09 | ASMTCMCOM ---
CM Note CM Note Notes: Pt admitted for scheduled surgery for bleeding likely from prostate. He lives at home with his and works as a professor at the university. No therapies ordered, anticipate he will dc home w/support of when medically stable. CM available should his needs change. DC Plan: Independent Date Signed: 10/28/2018 10:09 AM Electronically Signed By:Kassidy Adler RN
--- NOTE | 2018-10-28 11:43 | SOAPPROG ---
SOAP Progress Note Assessment/Plan: Assessment: Clot retention of urine Acute POD #1 resolved Prostatic hemorrhage Acute "" Hematuria Acute "" Urinary retention Acute "" Plan: DC home, iron supplementation, see in 3 weeks to discuss options for definitive rx 10/28/18 11:41 Subjective: ok Objective: Vital Signs Temp Pulse Resp BP Pulse Ox 36.6 C 46 L 16 140/72 H 96 10/28/18 07:54 10/28/18 07:54 10/28/18 07:54 10/28/18 07:54 10/28/18 07:54 Laboratory Results 10/28/18 04:00 10/28/18 04:00 10/27/18 10/28/18 10/29/18 05:59 05:59 05:59 Intake Total 1650 400 Output Total 6759 9 Balance -9474 -2138 Physical Exam - Physical Exam General Appearance: alert Neck: full range of motion Respiratory: No respiratory distress Cardiac/Chest: regular rate, rhythm Abdomen: soft Skin: warm/dry Neuro/Psych: alert, oriented x 3 ICD10 Worksheet Patient Problems: Problems Problem Status Onset Clot retention of urine Acute Prostatic hemorrhage Acute Hematuria Acute Urinary retention Acute - ICD10 Problem Qualifiers (1) Prostatic hemorrhage (2) Clot retention of urine
[2018-10-28 11:46] VITALS: BP 139/88
--- NOTE | 2018-10-28 13:21 | GDS ---
[f rep st] DISCHARGE SUMMARY ADMISSION DIAGNOSIS: Urinary clot retention with hemorrhagic prostatitis. DISCHARGE DIAGNOSIS: Urinary clot retention with hemorrhagic prostatitis. PROCEDURES DURING HOSPITALIZATION: Evacuation of clots and fulguration of prostatic hemorrhage. HOSPITAL COURSE: Gentleman was admitted and had the above procedure performed under general anesthes ia. Postop day 1, his catheter removed. He is voiding well. He is to have followup with me in the office in 3 weeks. His postop labs were reviewed, and I have asked that he take some extra iron supp lements to try to replenish any iron loss that he had related to his blood loss, and he will follow u p with me in 3 weeks. The only specimen sent during this hospitalization was a blood clot, and that is pending, and no complications encountered. None of his prehospital admission medications or care was changed. /[id number]/MODL
== END 2018-10-28 12:25 | disposition home or self-care (01) ==
LOC: FSGY 11:22 → F3E 14:17 → F1N 16:07
PROVIDERS: ADMIT Specialist; ATTEND Specialist
PROC: 0T5B8ZZ Destruction of Bladder, Via Natural or Artificial Opening Endoscopic (ICD-10-PCS; principal; 2018-10-27 13:00)
DX: N40.1 Benign prostatic hyperplasia with lower urinary tract symptoms (principal); R33.8 Other retention of urine; R31.9 Hematuria, unspecified; Z87.891 Personal history of nicotine dependence
CPT/HCPCS: 52214; G0378; J0690; J1100; J2405; J2704; J3010

== ENCOUNTER 2018-12-14 15:15 | Emergency (ER) | payer OTHER | END 2018-12-14 17:44 | disposition home or self-care (01) ==